=== PATIENT | male | born 1985 | race Hispanic/Latino ===

== ENCOUNTER → 2024-12-16 14:42 | Outpatient (REF) | payer OTHER, SELFPAY | LOC: HWRAD 14:42 | PROVIDERS: ATTENDING PHYSICIAN Family Medicine | DX: R10.12 Left upper quadrant pain (principal) | CPT/HCPCS: 76700 ==

== ENCOUNTER 2025-09-20 14:41 | Emergency (ER) | payer OTHER, SELFPAY ==
[2025-09-20 14:44] VITALS: BP 139/101
--- NOTE | 2025-09-20 15:25 | ED.GENMED ---
History of Present Illness
General
Chief Complaint: Anxiety
Source: patient
Exam Limitations: none
Time Seen by Provider: 09/20/25 15:08
History of Present Illness
History of Present Illness:
40yoM with a history of anxiety presenting via EMS for evaluation after a panic attack. Patient was camping with his family today. He went home to get supplies when he started to feel muscle tightness. He became anxious and started to
hyperventilate. His whole body became tingly. He was unable to control his symptoms so called EMS. Patient is now feeling much better. He has a history of panic attacks but has never had one this severe before. He denies any chest pain or
syncope. His Lexapro dose was increased from 5mg to 10mg about 3 weeks ago by his PCP.
Past History
Past History
ED Past Medical History: None
ED Past Surgical History: None
Social History
Tobacco: Smoker
Alcohol: None
Drug: None
Personal:
Living: with family
Employment: Employed
Phy Exam
General Physical Exam
General Presentation: well appearing and no apparent distress
General age: appears stated age
General Skin: warm and dry
General Habitus: normal
General Mental: alert
ENT Exam
ENT Exam: normocephalic
Cardiovascular Exam
Cardiovascular Exam: regular rate/rhythm
Pulmonary Exam
Pulmonary Exam: lungs clear, no respiratory distress, no rales, no crackles, no rhonchi and no wheezing
Neurological Exam
Neurological Exam: alert
[place] Coma Scale
Eye Opening: Spontaneous
Verbal Response: Oriented
Motor Response: Obeys Commands
GCS Total Score: 15
Skin Exam
Skin Exam: normal color and warm/dry
Psychiatric Exam
Psychiatric Exam: normal mood/affect
Course
Orders/Labs/Results
Orders:
Orders
09/20/25 15:25
Electrocardiogram (*1) Urgent
Reason for Study: Shortness of Breath
Crisis Consult Urgent
Reason for Consult: anxiety
EKG- Treatment ONCE
Vital Signs
Initial and Last Documented VS:
Initial Vital Signs
Temp Pulse Resp BP Pulse Ox
97.5 F 91 16 139/101 100
09/20/25 14:44 09/20/25 14:44 09/20/25 14:44 09/20/25 14:44 09/20/25 14:44
Last Documented Vital Signs
Temp Pulse Resp BP Pulse Ox
97.5 F 100 18 146/92 99
09/20/25 14:44 09/20/25 16:29 09/20/25 16:29 09/20/25 16:29 09/20/25 16:29
MDM/Problems Addressed
Differential Diagnosis Includes:
40yoM here after a panic attack. Now feeling improved. Denies CP/SOB. Hx of panic attacks but this was the most severe. VSS. Patient well appearing in no distress. Exam reassuring. Differential diagnosis includes: panic attack, less likely
ACS/arrhythmia
EKG obtained which shows NSR without ischemic changes. Very low suspicion for ACS as symptoms have resolved. He also had a stress test 2 years ago which was normal. Will defer labs. Patient and in agreement with this. Crisis team evaluated
patient and outpatient resources provided. Patient has a PCP appt scheduled for next week so will have close f/u. Patient remains asymptomatic on reassessment. ED return precautions reviewed and he was discharged in stable condition.
*Pulse Oximetry
SaO2: 100
Oxygen Mode of Delivery: Room air
Patient hypoxic: no
*EKG
Interpreted by ED Provider?: Yes
EKG Intrepretation Date: 09/20/25
Heart Rate: 74
Rate: normal
Rhythm: sinus
[place]: normal axis
Interval: normal interval
QRS Pattern: normal QRS
Ischemia: no ischemia
*Critical Care Note
Total Time (30-74mins, 75-104mins- exclusive of procedures): Not Applicable
ED Attending Note
-
Portions of this chart may have been created with voice recognition software.� Occasional wrong word or��sound alike� substitutions may have occurred due to the inherent limitations of voice recognition software.
Discharge Plan
Departure
Patient Disposition: Home (Routine Discharge)
Date of Disposition: 09/20/25
Time of Disposition: 16:33
Patient with high blood pressure during this ER visit?: Yes
Discharge Problem:
Panic attack
Instructions: Anxiety, Adult (DC)
Prescriptions:
No Action
escitalopram oxalate [Lexapro] 10 mg Tablet
10 mg PO DAILY
Referrals:
Erika Ragland MD [Family Provider, Family Practice]
Activity Restrictions/Additional Instructions:
Please follow-up with your family doctor and the outpatient mental health resources provided. Return to the ER with any new or worsening symptoms.
Interventions
Interventions:
*Risk Screen - Suicide Last Done: 09/20/25 14:44
*General Assessment Last Done: 09/20/25 14:44
*Neglect/Abuse Screening Last Done: 09/20/25 14:44
*ED- Fall Risk Assessment Last Done: 09/20/25 16:39
*ED COVID-19 Vaccine History Last Done: 09/20/25 14:44
*ED Influenza Vaccine History Last Done: 09/20/25 14:44
*Nursing Disposition Last Done: 09/20/25 16:39
ED-Psychological Assessment Last Done: 09/20/25 15:40
Discharge Date and Time
Discharge Date/Time: 09/20/25 16:40
Print Language: POLISH
[2025-09-20 16:29] VITALS: BP 146/92
== END 2025-09-20 16:40 | disposition home or self-care (01) ==
LOC: EMR 14:41
PROVIDERS: EMERGENCY PHYSICIAN Emergency Medicine; FAMILY PHYSICIAN Family Medicine
DX: F41.0 Panic disorder [episodic paroxysmal anxiety] (principal); F17.200 Nicotine dependence, unspecified, uncomplicated
CPT/HCPCS: 99283; 93005